=== PATIENT | male | born 1995 | race Caucasian/White ===

== ENCOUNTER 2023-12-28 02:01 | Emergency (ER) | payer OTHER, SELFPAY ==
[2023-12-28] VITALS (8 sets, daily range): BP systolic 142–155; BP diastolic 65–103
[2023-12-28] MEDS: ZOFRAN 4 MG IV ×2 (02:44→04:40)
[2023-12-28] MEDS: DILAUDID 1 MG IV ×2 (02:45→04:39)
[2023-12-28] MEDS: NSS 1000 IV ×2 (02:52→04:48)
[2023-12-28 03:03] LABS: % Basophils 0.2 % (0-2); % Monocytes 4.7 % (1.7-9.3); Absolute Monocytes 1.1 10^3/uL (0.1-0.6); Hematocrit 42.3 % (39.0-52.0); Hemoglobin 15.8 g/dL (13.0-18.0); Mean Corp Hgb Conc. 37.4 g/dL (33.0-37.0); Mean Corpuscular Volume 80.3 fL (80.0-94.0); Mean Platelet Volume 8.5 fL (7.4-10.4); Nucleated Red Blood Cells % 0 % (-); Platelet Count 352 10^3/uL (130-400); Red Blood Cell Count 5.27 10^6/uL (4.70-6.10); Red Cell Dist. Width 11.9 % (11.5-14.5); White Blood Cell Count 22.9 10^3/uL (4.8-10.8)
[2023-12-28 03:16] LABS: ALT (SGPT) 53 U/L (0-50); AST (SGOT) 33 U/L (17-59); Albumin 5.3 g/dl (3.5-5.0); Alkaline Phosphatase 92 U/L (38-126); Blood Urea Nitrogen 17 mg/dl (9-20); Calcium 10.2 mg/dl (8.4-10.2); Carbon Dioxide 22 mmol/L (22-30); Chloride 102 mmol/L (98-107); Glucose 155 mg/dl (70-99); Lipase 120 U/L (23-300); Potassium 3.7 mmol/L (3.5-5.1); Sodium 139 mmol/L (135-145); Total Bilirubin 2.1 mg/dl (0.2-1.3); Total Protein 8.2 g/dl (6.3-8.2); eGFR > 60.00
--- NOTE | 2023-12-28 04:11 | ED.GENMED ---
History of Present Illness
<GENE Jaeger - Last Filed: 12/28/23 05:51>
General
Chief Complaint: Abdominal Pain
Source: patient and significant other
Exam Limitations: none
Time Seen by Provider: 12/28/23 02:43
Nursing documentation reviewed up to this point in time: agreed with
Travel History
Have you had any contact with someone who has COVID-19?: No
Do you have any symptoms of coronavirus? Fever > 100 degrees, chills, cough, shortness of breath, sore throat, loss of taste or smell, muscle aches, or headache?: No
History of Present Illness
History of Present Illness:
This is a 28 year old male who presents to the ER w/ c/o nausea, vomiting and abdominal pain x9 hours. Significant other by bedside who is providing additional history. He describes the vomiting as bilious and the abdominal pain as diffuse crampy.
He also reports moderate diaphoresis x1-2 hours. He reports symptoms began shortly after drinking alcohol. He also admits smoking marijuana earlier in the day. He is a chronic marijuana smoker and admits to owning a medical marijuana card in his
home state. He has had similar episodes of cyclical vomiting in the past with the last episode being 1 year ago. He reports during episodes hot showers relieve his symptoms better. He denies any CP, SOB, KAUR, diarrhea.
<Bianka Baez MD - Last Filed: 12/28/23 06:31>
History of Present Illness
History of Present Illness:
This is a 28 year old male who presents to the ER w/ c/o nausea, vomiting and abdominal pain x9 hours. Significant other by bedside who is providing additional history. He describes the vomiting as bilious and the abdominal pain as diffuse crampy.
He also reports moderate diaphoresis x1-2 hours. He reports symptoms began shortly after drinking alcohol. He also admits smoking marijuana earlier in the day. He is a chronic marijuana smoker and admits to owning a medical marijuana card in his
home state. He has had similar episodes of cyclical vomiting in the past with the last episode being 1 year ago. He reports during episodes hot showers relieve his symptoms better. He denies any CP, SOB, KAUR, diarrhea.
Patient significant under reports that he has to come to the emergency department with the same exact symptoms 2-3 times a year for the last 7 years. Patient admits to smoking marijuana yesterday. He denies fever. Patient's significant other
reports that every time he gets an imaging study done nothing shows up abnormal. Patient reports he has not yet seen a GI doctor.
Past History
<Bianka Baez MD - Last Filed: 12/28/23 06:31>
Past History
ED Past Medical History: Other (Cyclic vomiting syndrome, Gilbert's)
ED Past Surgical History: None
Social History
Tobacco: Non-smoker
Alcohol: Occasional
Drug: Marijuana
Personal: Other
Living: with family
Employment: Employed
Family History
Family History: Other
Review of Systems
<Bianka Baez MD - Last Filed: 12/28/23 06:31>
Review of Systems
Allergies reviewed?: Yes
All Other Systems: ROS reviewed and negative except as documented in HPI and ROS
Constitutional: Reports no symptoms
Respiratory: Reports no symptoms
Cardiac: Reports no symptoms
ABD/GI: Reports abdominal pain, nausea and vomiting
: Reports no symptoms
Musculoskeletal: Reports no symptoms
Skin: Reports no symptoms
Neurological: Reports no symptoms
Endocrine: Reports no symptoms
Hematologic/Lymphatic: Reports no symptoms
Psychiatric: Reports no symptoms
Phy Exam
<Bianka Baez MD - Last Filed: 12/28/23 06:31>
Physical Exam
Physical Exam:
Physical Exam
General: Patient appears anxious and uncomfortable. Patient is gagging and hiccuping
Neck: supple. no meningeal signs. normal psoterior pharynx
Heart: s1/s2 regular rate and rhythm, no murmur. equal radial pulses.
Lungs: no acute respiratory distress. clear bilaterally
Abdomen: Nondistended. Mild diffuse epigastric tendernes. No pulsatile mass. No rebound or guarding
Neuro: alert and oriented. no focal neurological deficits
Skin: no rash
Psychiatric: well kept. interactive and cooperative
Extremities: no edema.
Course
<ST MilAR - Last Filed: 12/28/23 05:51>
Orders/Labs/Results
Orders:
Orders
12/28/23 02:38
Ondansetron Injectable [Zofran] 4 mg .ROUTE .STK-MED ONE
12/28/23 02:42
HYDROmorphone [Dilaudid] 1 mg .ROUTE .STK-MED ONE
12/28/23 02:43
HYDROmorphone [Dilaudid] 1 mg IV NOW STA
12/28/23 02:44
Ondansetron Injectable [Zofran] 4 mg IV NOW STA
12/28/23 02:51
0.9% Sodium Chloride 1000 ml [Nss] 1,000 ml IV BOLUS
12/28/23 02:53
IV Insert/Care/Rem.- Treatment PRN
Straight cath- Treatment ONCE
Urinalysis Reflex To Culture Urgent
Date Specimen was Collected: 12/28/23
Time Specimen was Collected: 02:53
12/28/23 02:57
Complete Blood Count/With Diff Urgent
Comprehensive Metabolic Panel Urgent
Lipase Urgent
12/28/23 04:36
HYDROmorphone [Dilaudid] 1 mg IV NOW STA
Ondansetron Injectable [Zofran] 4 mg IV NOW STA
12/28/23 04:47
0.9% Sodium Chloride 1000 ml [Nss] 1,000 ml IV BOLUS
12/28/23 06:00
Prochlorperazine [Compazine] 10 mg IV NOW STA
12/28/23 06:17
Mag Hydrox/Al Hydrox/Simeth [Maalox] 30 ml PO NOW STA
Abnormal Lab Results
12/28/23
02:57
WBC 22.9 H 10^3/uL
(4.8-10.8)
MCHC 37.4 H g/dL
(33.0-37.0)
Abs Immat Gran (auto) 0.2 H 10^3/uL
(0-0.05)
Absolute Neuts (auto) 20.7 H 10^3/uL
(1.4-6.5)
Absolute Lymphs (auto) 0.8 L 10^3/uL
(1.2-3.4)
Absolute Monos (auto) 1.1 H 10^3/uL
(0.1-0.6)
Absolute Basos (auto) 0.4 H 10^3/uL
(0-0.2)
Immature Gran % 0.7 H %
(0-0.5)
Neutrophils % 90.7 H %
(42.2-75.2)
Lymphocytes % 3.4 L %
(20.5-51.1)
Glucose 155 H mg/dl
(70-99)
Total Bilirubin 2.1 H mg/dl
(0.2-1.3)
ALT 53 H U/L
(0-50)
Albumin 5.3 H g/dl
(3.5-5.0)
12/28/23 02:57
12/28/23 02:57
Vital Signs
Initial and Last Documented VS:
Initial Vital Signs
Temp Pulse Resp BP Pulse Ox
97.9 F 92 24 150/90 98
12/28/23 02:14 12/28/23 02:14 12/28/23 02:14 12/28/23 02:14 12/28/23 02:14
Last Documented Vital Signs
Temp Pulse Resp BP Pulse Ox
97.9 F 92 20 142/65 100
12/28/23 02:14 12/28/23 06:12 12/28/23 06:12 12/28/23 06:12 12/28/23 06:12
<Bianka Baez MD - Last Filed: 12/28/23 06:31>
Orders/Labs/Results
Orders:
Orders
12/28/23 02:38
Ondansetron Injectable [Zofran] 4 mg .ROUTE .STK-MED ONE
12/28/23 02:42
HYDROmorphone [Dilaudid] 1 mg .ROUTE .STK-MED ONE
12/28/23 02:43
HYDROmorphone [Dilaudid] 1 mg IV NOW STA
12/28/23 02:44
Ondansetron Injectable [Zofran] 4 mg IV NOW STA
12/28/23 02:51
0.9% Sodium Chloride 1000 ml [Nss] 1,000 ml IV BOLUS
12/28/23 02:53
IV Insert/Care/Rem.- Treatment PRN
Straight cath- Treatment ONCE
Urinalysis Reflex To Culture Urgent
Date Specimen was Collected: 12/28/23
Time Specimen was Collected: 02:53
12/28/23 02:57
Complete Blood Count/With Diff Urgent
Comprehensive Metabolic Panel Urgent
Lipase Urgent
12/28/23 04:36
HYDROmorphone [Dilaudid] 1 mg IV NOW STA
Ondansetron Injectable [Zofran] 4 mg IV NOW STA
12/28/23 04:47
0.9% Sodium Chloride 1000 ml [Nss] 1,000 ml IV BOLUS
12/28/23 06:00
Prochlorperazine [Compazine] 10 mg IV NOW STA
12/28/23 06:17
Mag Hydrox/Al Hydrox/Simeth [Maalox] 30 ml PO NOW STA
Abnormal Lab Results
12/28/23
02:57
WBC 22.9 H 10^3/uL
(4.8-10.8)
MCHC 37.4 H g/dL
(33.0-37.0)
Abs Immat Gran (auto) 0.2 H 10^3/uL
(0-0.05)
Absolute Neuts (auto) 20.7 H 10^3/uL
(1.4-6.5)
Absolute Lymphs (auto) 0.8 L 10^3/uL
(1.2-3.4)
Absolute Monos (auto) 1.1 H 10^3/uL
(0.1-0.6)
Absolute Basos (auto) 0.4 H 10^3/uL
(0-0.2)
Immature Gran % 0.7 H %
(0-0.5)
Neutrophils % 90.7 H %
(42.2-75.2)
Lymphocytes % 3.4 L %
(20.5-51.1)
Glucose 155 H mg/dl
(70-99)
Total Bilirubin 2.1 H mg/dl
(0.2-1.3)
ALT 53 H U/L
(0-50)
Albumin 5.3 H g/dl
(3.5-5.0)
12/28/23 02:57
12/28/23 02:57
Vital Signs
Initial and Last Documented VS:
Initial Vital Signs
Temp Pulse Resp BP Pulse Ox
97.9 F 92 24 150/90 98
12/28/23 02:14 12/28/23 02:14 12/28/23 02:14 12/28/23 02:14 12/28/23 02:14
Last Documented Vital Signs
Temp Pulse Resp BP Pulse Ox
97.9 F 92 20 142/65 100
12/28/23 02:14 12/28/23 06:12 12/28/23 06:12 12/28/23 06:12 12/28/23 06:12
<Bianka Baez MD - Last Filed: 12/28/23 06:31>
MDM/Problems Addressed
Differential Diagnosis Includes:
Acute on chronic cyclic vomiting, bowel obstruction, acute cholecystitis, acute appendicitis
MDM/Problems Addressed:
Patient presents with acute on chronic abdominal pain and vomiting
Chronic conditions affecting care:
History of marijuana use and cyclic vomiting
Acute Exacerbation and/or Progression of Chronic Illness:
Patient likely has acute exacerbation of cyclic vomiting syndrome which is likely related to marijuana
<Bianka Baez MD - Last Filed: 12/28/23 06:31>
*Pulse Oximetry
Patient hypoxic: no
*EKG
Interpreted by ED Provider?: NA
*Dairy Husbandry Teacher Interpretation
Rate: Dairy Husbandry Teacher- N/A
*Critical Care Note
Total Time (30-74mins, 75-104mins- exclusive of procedures): Not Applicable
Data Reviewed
Source: patient
<Bianka Baez MD - Last Filed: 12/28/23 06:31>
Patient Management
Social determinants of health affecting care: Living situation and Strong social support
<Bianka Baez MD - Last Filed: 12/28/23 06:31>
Update Note
Update Note:
6:00 AM patient feels better and is happy to be discharged. Patient is adamant that this feels like his typical flare of his hyperemesis. Patient offered ultrasound and CAT scan to rule out gallbladder disease, bowel obstruction and acute
appendicitis, however, patient is adamant that this is very typical for his hyperemesis.
ED Attending Note
<EGNE Jaeger - Last Filed: 12/28/23 05:51>
-
Portions of this chart may have been created with voice recognition software.� Occasional wrong word or��sound alike� substitutions may have occurred due to the inherent limitations of voice recognition software.
Discharge Plan
Departure
Patient Disposition: Home (Routine Discharge)
Date of Disposition: 12/28/23
Time of Disposition: 06:17
Patient with high blood pressure during this ER visit?: Yes
Condition: Good
Covid-19: Not Applicable
Discharge Problem:
Cannabinoid hyperemesis syndrome
Instructions: Clear Liquid Diet, Cannabis hyperemesis syndrome, BLOOD PRESSURE
Prescriptions:
New
prochlorperazine [Compazine] 25 mg suppository
25 mg AR BID PRN (Reason: nausea/vomiting) Qty: 12 0RF
No Action
Adderall
1 pill PO DAILY
Rx Instructions:
unknown dose
Referrals:
PRIVATE,PHYSICIAN [Family Provider] -
Interventions
Interventions:
*Risk Screen - Suicide Last Done: 12/28/23 02:29
*General Assessment Last Done: 12/28/23 02:29
*Neglect/Abuse Screening Last Done: 12/28/23 02:29
ED- Fall Risk Assessment Last Done: 12/28/23 02:29
*ED COVID-19 Vaccine History Last Done: 12/28/23 02:29
KO-[id number]-[id number] Assessment Last Done: 12/28/23 03:20
Discharge Date and Time
Print Language: TURKISH
[2023-12-28 04:41] LABS: % Eosinophils 0.3 % (0-6); % Immature Granulocytes 0.7 % (0-0.5); % Lymphocytes 3.4 % (20.5-51.1); % Neutrophils 90.7 % (42.2-75.2); Absolute Basophils 0.4 10^3/uL (0-0.2); Absolute Eosinophils 0.1 10^3/uL (0-0.7); Absolute Immature Granulocytes 0.2 10^3/uL (0-0.05); Absolute Lymphocytes 0.8 10^3/uL (1.2-3.4); Absolute Neutrophils 20.7 10^3/uL (1.4-6.5)
[2023-12-28] MEDS: COMPAZINE 10 MG IV (06:15)
[2023-12-28] MEDS: MAALOX 30 ML PO (06:21)
== END 2023-12-28 07:07 | disposition home or self-care (01) ==
LOC: EMR 02:01
PROVIDERS: EMERGENCY PHYSICIAN Emergency Medicine
DX: F12.90 Cannabis use, unspecified, uncomplicated (principal); R11.2 Nausea with vomiting, unspecified; R10.9 Unspecified abdominal pain; R61 Generalized hyperhidrosis; R03.0 Elevated blood-pressure reading, without diagnosis of hypertension; E80.4 Gilbert syndrome
CPT/HCPCS: 99284; 96374; 96375 ×2; 96361 ×2; 96376 ×2; 80053; 83690; 85025